=== PATIENT | female | born 1990 | race Caucasian/White ===

== ENCOUNTER 2016-06-01 15:23 | Emergency (ER) | payer OTHER ==
[~2016-06-01] VITALS: Ht 170.2 cm; Wt 85.0 kg
[2016-06-01 21:09] LABS: BASOPHIL % 0.4 % (0-2); PLATELET COUNT 231 x10^3mcL (130-400)
[2016-06-01 21:12] LABS: microscopic required? YES; urine erythrocyte NEGATIVE (NEGATIVE)
[2016-06-01 21:14] LABS: RED CELL DISTRIBUTION WIDTH 16.2 % (11.5-14.5)
[2016-06-01 21:24] LABS: CALCIUM 9.4 mg/dL (8.5-10.1); CARBON DIOXIDE 26.9 mmol/L (21-32); CHLORIDE SERUM 104 mmol/L (98-107); CREATININE SERUM 0.7 mg/dL (0.6-1.0); GFR1 > 60 mL/min; GLUCOSE SERUM 85 mg/dL (74-106); POTASSIUM SERUM 3.6 mmol/L (3.5-5.1); SODIUM SERUM 140 mmol/L (136-145)
[2016-06-01 21:28] LABS: ALBUMIN 4.1 g/dL (3.4-5.0); ALKALINE PHOSPHATASE 66 U/L (46-116); ALT/SGPT 17 U/L (14-59); AMYLASE 56 U/L (25-115); AST/SGOT 17 U/L (15-37); BILIRUBIN TOTAL 0.44 mg/dL (0.20-1.00); LIPASE 72 IU/L (73-393); TOTAL PROTEIN, SERUM 8.1 g/dL (6.4-8.2)
[2016-06-01 23:15] VITALS: BP 133/86
== END 2016-06-01 23:15 | disposition home or self-care (01) ==
LOC: ED 15:23
PROVIDERS: Emergency Medicine
DX: N39.0 Urinary tract infection, site not specified (principal); N83.9 Noninflammatory disorder of ovary, fallopian tube and broad ligament, unspecified

== ENCOUNTER 2016-08-21 13:35 | Emergency (ER) | payer OTHER ==
[2016-08-21 17:47] VITALS: BP 117/74
== END 2016-08-21 17:47 | disposition home or self-care (01) ==
LOC: ED 13:35
DX: S39.012A Strain of muscle, fascia and tendon of lower back, initial encounter (principal); X58.XXXA Exposure to other specified factors, initial encounter; Y93.89 Activity, other specified; Y99.8 Other external cause status; Y92.89 Other specified places as the place of occurrence of the external cause
CPT/HCPCS: 72072